=== PATIENT | male | born 1955 | race Hispanic/Latino ===

== ENCOUNTER 2018-12-01 06:58 | Inpatient (IN) | payer OTHER ==
[2018-12-01 08:04] LABS: Basophils % (Auto) 0.5 % (0.0-1.8); Eosinophils % (Auto) 0.6 % (0.0-4.3); Hematocrit 42.3 % (35.5-45.6); Hemoglobin 13.7 gm/dl (11.8-15.2); Lymphocytes # (Auto) 0.4 K/mm3 (1.2-5.4); Lymphocytes % (Auto) 6.8 % (13.4-35.0); Mean Corpuscular HGB Conc 32 % (32-34); Mean Corpuscular Volume 88 fl (84-94); Monocytes # (Auto) 0.4 K/mm3 (0.0-0.8); Monocytes % (Auto) 6.3 % (0.0-7.3); Platelet Count 181 K/mm3 (140-440); Red Blood Count 4.78 M/mm3 (3.65-5.03); Red Cell Distribution Width 18.7 % (13.2-15.2)
[2018-12-01] MEDS ORDERED: NACL 0.9% 500 ML 500 ML IV ONE (08:29)
[2018-12-01 08:31] LABS: Alanine Aminotransferase 42 units/L (7-56); Albumin 3.4 g/dL (3.9-5); BUN/Creatinine Ratio 12; Blood Urea Nitrogen 7 mg/dL (9-20); Calcium 8.5 mg/dL (8.4-10.2); Hemolysis Index 10
[2018-12-01] MEDS ORDERED: MERREM 1,000 MG in NACL 0.9% 100 ML IV ONE (08:31)
--- NOTE | 2018-12-01 08:50 | Emergency Department Report ---
ED General Adult HPI - General Chief complaint: Abdominal Pain Stated complaint: RIGHT FLANK & LEG PAIN Time Seen by Provider: 12/01/18 08:29 Source: patient Mode of arrival: Wheelchair Limitations: No Limitations - History of Present Illness Initial comments: 63-year-old homeless man who was brought in for evaluation for weakness and leg pain. Apparently patient mentions some back pain. On exam he is complaining of abdominal tenderness. He states he is almost since before May which was his last hospitalization for pneumonia. He states he cannot recall how long he was hospitalized for. He states he cannot recall when the last time he was in a [place] [facility] care facility was. He thinks he may have had a fever. Does not report cough chest pain or shortness of breath. -: Gradual, days(s), week(s), month(s) Location: back, abdomen, lower extremity Radiation: non-radiation Quality: aching Consistency: intermittent Improves with: none Worsens with: none Associated Symptoms: denies other symptoms (vague historian may have had a fever) - Related Data Previous Rx's Medication Instructions Recorded Last Taken Type ALBUTEROL Inhaler(NF) [VENTOLIN 2 puff IH Q4H PRN #1 unit 05/26/18 Unknown Rx Inhaler(NF)] Acetaminophen [Acetaminophen TAB] 650 mg PO Q4H PRN #15 tablet 05/26/18 Unknown Rx Aspirin EC 325 mg PO QDAY tablet 05/26/18 Unknown Rx Budesonide/Formoterol Fumarate 1 inhalation IH BID #1 unit 05/26/18 Unknown Rx [Symbicort 160-4.5 Mcg Inhaler] Folic Acid [Folvite] 1 mg PO QDAY #30 tablet 05/26/18 Unknown Rx Nicotine [Habitrol] 21 mg TD QDAY #14 patch 05/26/18 Unknown Rx Thiamine [Vitamin B-1] 100 mg PO QDAY #30 tablet 05/26/18 Unknown Rx Tiotropium [place] [Spiriva 4 gm IH DAILY #1 mist.inhal 05/26/18 Unknown Rx Respimat] levoFLOXacin [Levaquin] 750 mg PO QDAY 5 Days #5 tablet 05/26/18 Unknown Rx methylPREDNISolone [Medrol Dose 1 dose PO DAILY #1 pack 05/26/18 Unknown Rx Ang] Allergies Allergy/AdvReac Type Severity Reaction Status Date / Time No Known Allergies Allergy Verified 05/24/18 23:58 ED Review of Systems ROS: Stated complaint: RIGHT FLANK & LEG PAIN Other details as noted in HPI ED Past Medical Hx - Past Medical History Previous Medical History?: Yes Hx Hypertension: Yes - Surgical History Past Surgical History?: Yes Additional Surgical History: hemorroid, coloscopy - Social History Smoking Status: Current Every Day Smoker Substance Use Type: Alcohol - Medications Home Medications: Home Medications Medication Instructions Recorded Confirmed Last Taken Type ALBUTEROL Inhaler(NF) [VENTOLIN 2 puff IH Q4H PRN #1 unit 05/26/18 Unknown Rx Inhaler(NF)] Acetaminophen [Acetaminophen TAB] 650 mg PO Q4H PRN #15 tablet 05/26/18 Unknown Rx Aspirin EC 325 mg PO QDAY tablet 05/26/18 Unknown Rx Budesonide/Formoterol Fumarate 1 inhalation IH BID #1 unit 05/26/18 Unknown Rx [Symbicort 160-4.5 Mcg Inhaler] Folic Acid [Folvite] 1 mg PO QDAY #30 tablet 05/26/18 Unknown Rx Nicotine [Habitrol] 21 mg TD QDAY #14 patch 05/26/18 Unknown Rx Thiamine [Vitamin B-1] 100 mg PO QDAY #30 tablet 05/26/18 Unknown Rx Tiotropium [place] [Spiriva 4 gm IH DAILY #1 mist.inhal 05/26/18 Unknown Rx Respimat] levoFLOXacin [Levaquin] 750 mg PO QDAY 5 Days #5 tablet 05/26/18 Unknown Rx methylPREDNISolone [Medrol Dose 1 dose PO DAILY #1 pack 05/26/18 Unknown Rx Ang] ED Physical Exam - General Limitations: No Limitations ED Course Vital Signs 12/01/18 07:36 Temperature 96.8 F L Pulse Rate 107 H Respiratory 16 Rate Blood Pressure 111/72 O2 Sat by Pulse 100 Oximetry ED Medical Decision Making - Lab Data Result diagrams: 12/01/18 07:51 12/01/18 07:51 Laboratory Results - last 24 hr 12/01/18 12/01/18 12/01/18 07:44 07:51 07:51 WBC 6.0 RBC 4.78 Hgb 13.7 Hct 42.3 MCV 88 MCH 29 MCHC 32 RDW 18.7 H Plt Count 181 Lymph % (Auto) 6.8 L Hunt % (Auto) 6.3 Eos % (Auto) 0.6 Baso % (Auto) 0.5 Lymph # 0.4 L Hunt # 0.4 Eos # 0.0 Baso # 0.0 Seg Neutrophils % 85.8 H Seg Neutrophils # 5.1 Sodium 125 L Potassium 4.1 Chloride 86.5 L Carbon Dioxide 20 L Anion Gap 23 BUN 7 L Creatinine 0.6 L Estimated GFR > 60 BUN/Creatinine Ratio 12 Glucose 85 POC Glucose 88 Lactic Acid Calcium 8.5 Total Bilirubin 0.40 AST 42 H ALT 42 Alkaline Phosphatase 104 Total Protein 7.2 Albumin 3.4 L Albumin/Globulin Ratio 0.9 Plasma/Serum Alcohol 12/01/18 12/01/18 09:01 09:01 WBC RBC Hgb Hct MCV MCH MCHC RDW Plt Count Lymph % (Auto) Hunt % (Auto) Eos % (Auto) Baso % (Auto) Lymph # Hunt # Eos # Baso # Seg Neutrophils % Seg Neutrophils # Sodium Potassium Chloride Carbon Dioxide Anion Gap BUN Creatinine Estimated GFR BUN/Creatinine Ratio Glucose POC Glucose Lactic Acid 0.70 Calcium Total Bilirubin AST ALT Alkaline Phosphatase Total Protein Albumin Albumin/Globulin Ratio Plasma/Serum Alcohol < 0.01 - EKG Data -: EKG Interpreted by Nm EKG shows normal: sinus rhythm, axis, intervals, QRS complexes, ST-T waves Rate: normal - EKG Data Interpretation: nonspecific ST-T wave noelle - Radiology Data Radiology results: report reviewed Right renal mass, probably adenoma. No acute process. Critical care attestation.: If time is entered above; I have spent that time in minutes in the direct care of this critically ill patient, excluding procedure time. ED Disposition Clinical Impression: Hyponatremia, Acute encephalopathy, Metabolic acidosis, increased anion gap Disposition: OP ADMIT IP TO THIS HOSP Is pt being admited?: Yes Does the pt Need Aspirin: Yes Condition: Stable Referrals: NATAILYA RIVERA MD [Primary Care Provider] - 3-5 Days Time of Disposition: 11:01
--- NOTE | 2018-12-01 09:05 | XRay Report ---
AP CHEST: HISTORY: Possible sepsis AP view of the chest demonstrates a normal mediastinal and cardiac contour with clear lungs. Chronic left rib deformities are again noted. Note significant change since 05/31/18. IMPRESSION: No acute cardiopulmonary process.
[2018-12-01] MEDS ORDERED: DUONEB *Not for PRN Use IH ONE (10:00)
[2018-12-01 10:01] LABS: INR 0.98 (0.87-1.13)
[2018-12-01 10:02] LABS: Partial Thromboplastin Time 28.9 Sec. (24.2-36.6)
[2018-12-01] MEDS ORDERED: NACL 0.9% 1000 ML 1,000 ML IV ONE (10:03)
[2018-12-01 10:09] LABS: Creatine Kinase MB 3.9 ng/mL (0.0-4.0)
--- NOTE | 2018-12-01 10:51 | Cat Scan Report ---
CT ABDOMEN PELVIS WITH CONTRAST: HISTORY: abdominal pain. COMPARISON: none. TECHNIQUE: Helical CT in 1.25mm intervals following IV contrast. Sagittal and coronal reconstructions. FINDINGS: Lung bases: Mild emphysematous changes are suspected at the lung bases. Normal heart size. Small to medium hiatal hernia. Liver: Moderate diffuse fatty infiltration is identified. No enlargement or mass. The hepatic vasculature is patent. Biliary system: Normal. Pancreas: Normal. Spleen: Normal. Kidneys/ureters/bladder: Normal. Adrenal glands: A 3.7 x 2.0 cm low density right adrenal mass is identified. The left adrenal gland is normal. Aorta: Multiple diffuse calcifications. No aneurysm or stenosis. Intestines: No oral contrast was administered. There is no evidence for obstruction or focal inflammation. Appendix: Normal. Pelvic viscera: Normal. Ascites: None. Adenopathy: None. 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 Chronic superior endplate deformity of L2. The bony structures are mildly demineralized with degenerative change. No acute fracture is appreciated. IMPRESSION: No acute inflammatory process is identified. Hiatal hernia. Hepatic steatosis. Right adrenal mass as described. This probably represents an adrenal adenoma. This could be further evaluated with noncontrast CT abdomen or MRI abdomen adrenal protocol if needed. Chronic left rib and L2 fractures.
[2018-12-01] MEDS ORDERED: BABY ASPIRIN PO ONE (11:01)
[2018-12-01] MEDS ORDERED: BABY ASPIRIN ONE (11:20)
[2018-12-01 13:09] LABS: Bilirubin,Urine NEG (Negative); Blood,Urine NEG (Negative); Color,Urine Yellow (Yellow); Mucus,Urine FEW /HPF; Protein,Urine <15 mg/dL mg/dL (Negative); RBC,Urine < 1.0 /HPF (0.0-6.0); Urobilinogen,Urine < 2.0 mg/dL (<2.0); WBC,Urine < 1.0 /HPF (0.0-6.0)
[2018-12-01 13:16] LABS: Amphetamine Screen,Urine PRESUMPTIVE NEGATIVE; Benzodiazepines Screen,Urine PRESUMPTIVE NEGATIVE; Cannabinoid Screen,Urine PRESUMPTIVE NEGATIVE; Cocaine Screen,Urine PRESUMPTIVE NEGATIVE; Methadone Screen,Urine PRESUMPTIVE NEGATIVE; Opiate Screen,Urine PRESUMPTIVE NEGATIVE
[2018-12-01] MEDS ORDERED: SODIUM CHLORIDE FLUSH SYRINGE 10 ML IV PRN (17:26)
[2018-12-01] MEDS ORDERED: TYLENOL PO PRN (17:26)
[2018-12-01] MEDS ORDERED: DILAUDID IV PRN (17:26)
[2018-12-01] MEDS ORDERED: ZOFRAN IV PRN (17:26)
[2018-12-01] MEDS ORDERED: NACL 0.9% 1000 ML 1,000 ML IV SCH (18:00)
[2018-12-01] MEDS ORDERED: HABITROL TD SCH (18:00)
[2018-12-01] MEDS: NACL 0.9% 1000 ML 1,000 ML IV SCH (19:21)
[2018-12-01] MEDS: SODIUM CHLORIDE FLUSH SYRINGE 10 ML IV SCH (21:40)
[2018-12-01] MEDS: PEPCID IV SCH (21:40)
[2018-12-02 05:27] LABS: Basophils % (Auto) 0.7 % (0.0-1.8); Eosinophils % (Auto) 0.7 % (0.0-4.3); Hematocrit 34.1 % (35.5-45.6); Hemoglobin 11.4 gm/dl (11.8-15.2); Lymphocytes # (Auto) 0.4 K/mm3 (1.2-5.4); Lymphocytes % (Auto) 10.4 % (13.4-35.0); Mean Corpuscular HGB Conc 33 % (32-34); Mean Corpuscular Volume 88 fl (84-94); Monocytes # (Auto) 0.5 K/mm3 (0.0-0.8); Monocytes % (Auto) 11.5 % (0.0-7.3); Platelet Count 143 K/mm3 (140-440); Red Blood Count 3.85 M/mm3 (3.65-5.03); Red Cell Distribution Width 18.1 % (13.2-15.2)
[2018-12-02 05:44] LABS: BUN/Creatinine Ratio 10; Blood Urea Nitrogen 6 mg/dL (9-20); Calcium 7.7 mg/dL (8.4-10.2)
[2018-12-02 05:45] LABS: Alanine Aminotransferase 31 units/L (7-56); Albumin 2.6 g/dL (3.9-5); Hemolysis Index 3
--- NOTE | 2018-12-02 06:14 | Event Note ---
Date: 12/01/18 Seee H/p in reports Hyponatremia COPD Homelessness
--- NOTE | 2018-12-02 06:37 | History and Physical Report ---
CHIEF COMPLAINT: 1. Generalized weakness. 2. Homelessness. 3. Low back pain. HISTORY OF PRESENT ILLNESS: The patient is a 63-year-old male with history of COPD and nicotine dependence, comes in for generalized weakness. The patient is homeless. The patient is a poor historian. Apparently smokes about a pack and half a day. The patient had pneumonia in May for which he was hospitalized. He comes in because of generalized weakness and feeling debilitated. Also, some cough and shortness of breath present. No fever or chills. No wheezing. No chest pain. The patient is homeless. PAST MEDICAL HISTORY: As mentioned, COPD and hypertension. CURRENT MEDICATIONS: On the chart. PAST SURGICAL HISTORY: Hemorrhoid surgery. SOCIAL HISTORY: Smokes over a pack to a pack and a half a day. Alcohol occasionally. FAMILY HISTORY: Hypertension. REVIEW OF SYSTEMS: Significant for generalized weakness and difficulty walking. Also, some shortness of breath and cough present, but no wheezing. Shortness of breath on exertion. PHYSICAL EXAMINATION: GENERAL: Elderly male, cooperative during examination. VITAL SIGNS: Blood pressure is 109/62, temperature is 99.4, pulse is 85, respiratory rate is 20, sats are 97%. HEENT: Unremarkable. Pupils equal and reactive. NECK: Supple, no lymphadenopathy, no thyromegaly. LUNGS: Clear to auscultation and percussion. Good air entry. CARDIOVASCULAR: S1, S2 heard. No gallop, no murmur, no rub. Apical impulse in left fifth intercostal space and midclavicular line. ABDOMEN: Soft and benign. No hepatosplenomegaly. No guarding, no rigidity. Hernial orifices are normal. EXTREMITIES: Good pedal pulses. No pedal edema. CENTRAL NERVOUS SYSTEM: Alert and oriented x 4. Nonfocal exam. LABORATORY DATA: Significant for a normal white count, sodium of 125, BUN and creatinine of 7 and 0.6, chloride is 86.5, bicarbonate is 20, AST is 42, albumin is 3.4. Urine specific gravity is 1.033, but no infection. Drug screen is negative. Chest x-ray, no acute cardiopulmonary process. Abdominal and pelvis CT shows no acute inflammatory process. Hiatal hernia. Hepatic steatosis. Right adrenal mass, which may be adrenal adenoma. MRI abdomen renal protocol if needed. ASSESSMENT AND PLAN: 1. Hyponatremia, etiology unclear. The patient is not on any diuretics. IV normal saline for now. Serum osmolality and urine osmolality were ordered. 2. Chronic obstructive pulmonary disease. Continue Symbicort and DuoNeb and Spiriva. 3. Nicotine dependence. Nicotine patch ordered. 4. Smoking cessation, counseled. 10 minutes. 5. Homelessness. Case management and social studies teacher are involved. 6. Deep venous thrombosis prophylaxis, Lovenox subcutaneously daily and gastrointestinal prophylaxis. JOB# [id number] HERMELINDO/ROMERO CASTILLO
[2018-12-02] MEDS ORDERED: PULMICORT IH SCH (08:00)
--- NOTE | 2018-12-02 09:22 | Progress Note ---
Assessment and Plan Assessment and plan: Patient is a 63 yo man who is Homeless with a history of COPD, tobacco dependency, alcohol abuse, AOCD, hypotension, right Adrenal lesion, hepatic steatosis and hiatal hernia who presented to [facility] ED with abdominal pains. He was sleeping outside of a gas station. He c/o abdominal and back pains. He was p icked up by EMS. Patient arrived wet and smelling of urine * CT abd/pelvis with IV contrast IMPRESSION: No acute inflammatory process is identified. Hiatal hernia. Hepatic steatosis. Right adrenal mass as described. This probably represents an adrenal adenoma. This could be further evaluated with noncontrast CT abdomen or MRI abdomen adrenal protocol if needed. Chronic left rib and L2 fractures. * pCXR IMPRESSION: No acute cardiopulmonary process. Severe hyponatremia, initially sodium level 125, dehydration: treat with IV fluids, consulted Nephrology Hypokalemia: replete and monitor closely Severe protein malnutrition, albumin 2.6: consult Commercial Marketing Specialist Chronic Right Adrenal Mass: consult GI Alcohol fatty liver, alcohol level, transaminases and bilirubin normal: continue to encourage alcohol abstinence Acidosis: treat the dehydration Mild AE COPD: treat with nebs, o2 as needed Tobacco dependency: certified credit counselor on stopping Homeless: Case management consulted DVT ppx on sq lovenox History Interval history: Patient was seen and examined. Follow-up on current diagnosis of Hyponatremia, COPD and Homelessness. No overnight events reported to me. Patient denies any chest pain, shortness breath, nausea/vomiting or severe headaches. Imaging, nursing note, chart, labs and old chart reviewed. Discussed with patient. Hospitalist Physical - Physical exam Narrative exam: Gen: thin frail, unkempt, NAD, Awake, Alert, Orientated HEENT: NCAT, EOMI, PERRL, OP Clear Neck: supple, no adenopathy, no thyromegaly, no JVD CVS/Heart: RRR, normal S1S2, pulses present bilaterally Chest/Lungs: CTA B, Symmetrical chest expansion, good air entry bilaterally GI/Abdomen: soft, NTND, good bowel sounds, no guarding or rebound /Bladder: no suprapubic tenderness, no CVA or paraspinal tenderness Extermity/Skin: no c/c/e, no obvious rash MSK: FROM x 4 Neuro: CN 2-12 grossly intact, no new focal deficits Psych: calm - Constitutional Vitals: Temp Pulse Resp BP Pulse Ox 98.6 F 87 18 104/63 98 12/02/18 05:57 12/02/18 05:57 12/02/18 05:57 12/02/18 05:57 12/02/18 05:57 Results - Labs CBC & Chem 7: 12/02/18 04:45 12/02/18 04:45 Labs: Laboratory Last Values WBC 4.2 K/mm3 (4.5-11.0) L 12/02/18 04:45 RBC 3.85 M/mm3 (3.65-5.03) 12/02/18 04:45 Hgb 11.4 gm/dl (11.8-15.2) L 12/02/18 04:45 Hct 34.1 % (35.5-45.6) L D 12/02/18 04:45 MCV 88 fl (84-94) 12/02/18 04:45 MCH 30 pg (28-32) 12/02/18 04:45 MCHC 33 % (32-34) 12/02/18 04:45 RDW 18.1 % (13.2-15.2) H 12/02/18 04:45 Plt Count 143 K/mm3 (140-440) 12/02/18 04:45 Lymph % (Auto) 10.4 % (13.4-35.0) L 12/02/18 04:45 [place] % (Auto) 11.5 % (0.0-7.3) H 12/02/18 04:45 Eos % (Auto) 0.7 % (0.0-4.3) 12/02/18 04:45 Baso % (Auto) 0.7 % (0.0-1.8) 12/02/18 04:45 Lymph # 0.4 K/mm3 (1.2-5.4) L 12/02/18 04:45 [place] # 0.5 K/mm3 (0.0-0.8) 12/02/18 04:45 Eos # 0.0 K/mm3 (0.0-0.4) 12/02/18 04:45 Baso # 0.0 K/mm3 (0.0-0.1) 12/02/18 04:45 Seg Neutrophils % 76.7 % (40.0-70.0) H 12/02/18 04:45 Seg Neutrophils # 3.2 K/mm3 (1.8-7.7) 12/02/18 04:45 PT 13.6 Sec. (12.2-14.9) 12/01/18 09:01 INR 0.98 (0.87-1.13) 12/01/18 09:01 APTT 28.9 Sec. (24.2-36.6) 12/01/18 09:01 VBG pH 7.404 (7.320-7.420) 12/01/18 09:01 Sodium 127 mmol/L (137-145) L 12/02/18 04:45 Potassium 3.0 mmol/L (3.6-5.0) L D 12/02/18 04:45 Chloride 94.1 mmol/L (98-107) L 12/02/18 04:45 Carbon Dioxide 20 mmol/L (22-30) L 12/02/18 04:45 16 mmol/L 12/02/18 04:45 BUN 6 mg/dL (9-20) L 12/02/18 04:45 0.6 mg/dL (0.8-1.5) L 12/02/18 04:45 Estimated GFR > 60 ml/min 12/02/18 04:45 10 % 12/02/18 04:45 Glucose 123 mg/dL (75-100) H 12/02/18 04:45 POC Glucose 88 (70-105) 12/01/18 07:44 4.6 % (4-6) 12/01/18 17:36 Lactic Acid 0.80 mmol/L (0.7-2.0) 12/01/18 13:04 Calcium 7.7 mg/dL (8.4-10.2) L 12/02/18 04:45 Magnesium 1.90 mg/dL (1.7-2.3) 12/01/18 07:51 0.30 mg/dL (0.1-1.2) 12/02/18 04:45 AST 28 units/L (5-40) 12/02/18 04:45 ALT 31 units/L (7-56) 12/02/18 04:45 81 units/L (35-129) 12/02/18 04:45 46.0 umol/L (25-60) 12/01/18 09:01 125 units/L (55-170) 12/01/18 07:51 CK-MB (CK-2) 3.9 ng/mL (0.0-4.0) 12/01/18 07:51 CK-MB (CK-2) Rel Index 3.1 (0-4) 12/01/18 07:51 < 0.010 ng/mL (0.00-0.029) 12/01/18 07:51 NT-Pro-B Natriuret Pep 247.0 pg/mL (0-900) 12/01/18 07:51 5.4 g/dL (6.3-8.2) L D 12/02/18 04:45 2.6 g/dL (3.9-5) L 12/02/18 04:45 0.9 % 12/02/18 04:45 25 units/L (13-60) 12/01/18 07:51 Yellow (Yellow) 12/01/18 12:22 Clear (Clear) 12/01/18 12:22 6.0 (5.0-7.0) 12/01/18 12:22 Ur Specific [place] 1.033 (1.003-1.030) H 12/01/18 12:22 <15 mg/dl mg/dL (Negative) 12/01/18 12:22 Neg mg/dL (Negative) 12/01/18 12:22 20 mg/dL (Negative) 12/01/18 12:22 Neg (Negative) 12/01/18 12:22 Neg (Negative) 12/01/18 12:22 Neg (Negative) 12/01/18 12:22 < 2.0 mg/dL (<2.0) 12/01/18 12:22 Ur Leukocyte Esterase Neg (Negative) 12/01/18 12:22 < 1.0 /HPF (0.0-6.0) 12/01/18 12:22 < 1.0 /HPF (0.0-6.0) 12/01/18 12:22 Few /HPF 12/01/18 12:22 Presumptive negative 12/01/18 12:22 Presumptive negative 12/01/18 12:22 Ur Barbiturates Screen Presumptive negative 12/01/18 12:22 Ur Phencyclidine Scrn Presumptive negative 12/01/18 12:22 Ur Amphetamines Screen Presumptive negative 12/01/18 12:22 U Benzodiazepines Scrn Presumptive negative 12/01/18 12:22 Presumptive negative 12/01/18 12:22 U Marijuana (THC) Screen Presumptive negative 12/01/18 12:22 Disclamer 12/01/18 12:22 Plasma/Serum Alcohol < 0.01 % (0-0.07) 12/01/18 09:01 Active Medications - Current Medications Current Medications: Generic Name Dose Route Start Last Admin Trade Name Freq PRN Reason Stop Dose Admin Acetaminophen 650 mg 12/01/18 17:26 Tylenol PO Q4H PRN Pain MILD(1-3)/Fever >100.5/MCKEON Arformoterol Tartrate 15 mcg 12/02/18 08:00 Brovana Nebu IH Q12HRT [facility] Aspirin 325 mg 12/02/18 10:00 Ecotrin PO QDAY DAVIS Budesonide 0.5 mg 12/02/18 08:00 Pulmicort IH Q12HRT [facility] Famotidine 20 mg 12/01/18 22:00 12/01/18 21:40 Pepcid IV 20 mg BID DAVIS Administration Folic Acid 1 mg 12/02/18 10:00 Folvite PO QDAY DAVIS Hydromorphone HCl 0.25 mg 12/01/18 17:26 Dilaudid IV Q3H PRN Pain, Moderate (4-6) Sodium Chloride 1,000 mls @ 100 mls/hr 12/01/18 18:00 12/01/18 19:21 Nacl 0.9% 1000 Ml IV 100 mls/hr DIRECT DAVIS Administration Ibuprofen 600 mg 12/01/18 17:26 Ibuprofen PO Q6H PRN Pain, Mild (1-3) Nicotine 21 mg 12/02/18 10:00 Habitrol TD QDAY DAVIS Ondansetron HCl 4 mg 12/01/18 17:26 Zofran IV Q8H PRN Nausea And Vomiting Pneumococcal Polyvalent Vaccine 0.5 ml 12/02/18 12:00 Pneumovax 23 IM 12/02/18 12:01 .ONCE ONE Sodium Chloride 10 ml 12/01/18 22:00 12/01/18 21:40 Sodium Chloride Flush Syringe 10 Ml IV 10 ml BID DAVIS Administration Sodium Chloride 10 ml 12/01/18 17:26 Sodium Chloride Flush Syringe 10 Ml IV PRN PRN LINE FLUSH Thiamine HCl 100 mg 12/02/18 10:00 Vitamin B-1 PO QDAY DAVIS Tiotropium [place] 1 puff 12/02/18 10:00 Spiriva IH Q24HR DAVIS
[2018-12-02] MEDS: NACL 0.9% 1000 ML 1,000 ML IV SCH ×2 (09:53→22:06)
[2018-12-02] MEDS: HABITROL TD SCH (09:55)
[2018-12-02] MEDS: VITAMIN B-1 PO SCH (09:55)
[2018-12-02] MEDS: ECOTRIN PO SCH (09:55)
[2018-12-02] MEDS: FOLVITE PO SCH (09:55)
[2018-12-02] MEDS: PEPCID IV SCH ×2 (09:56→22:06)
[2018-12-02] MEDS: SODIUM CHLORIDE FLUSH SYRINGE 10 ML IV SCH ×2 (09:56→22:06)
[2018-12-02] MEDS ORDERED: BUDESONIDE IH SCH (10:00)
[2018-12-02] MEDS ORDERED: FORMOTEROL FUMARATE IH SCH (10:00)
[2018-12-02] MEDS ORDERED: NON-FORMULARY (Tiotropium Bromide [Spiriva Respimat] 4 GM) IH SCH (10:00)
[2018-12-02] MEDS ORDERED: [UNRECOGNIZED DRUG - OTHER] IH SCH (10:00)
[2018-12-02] MEDS ORDERED: K-DUR PO ONE ×2 (10:00→22:52)
[2018-12-02] MEDS: BROVANA NEBU IH SCH ×2 (10:03→21:19)
[2018-12-02] MEDS: PULMICORT IH SCH ×2 (10:03→21:19)
[2018-12-02] MEDS: SPIRIVA IH SCH (10:03)
[2018-12-02] MEDS ORDERED: PNEUMOVAX 23 IM ONE (12:00)
--- NOTE | 2018-12-02 15:07 | Consultation ---
History of Present Illness - Reason for Consult Consult date: 12/02/18 hyponatremia, hypokalemia - History of Present Illness The patient is a 63 YO male who is homeless was brought into [facility] ED for evaluation of weakness and leg pain. Patient is very poor historian. "I was sick". Patient was not able to described any symptom. He was admitted last year for hypotension and hyponatremia. He denies any cp, sob, fever, chills, dizziness or syncope. Sodium was 125 on admission. Nephrology was consulted for further evaluation. Past History Past Medical History: other (Adrenal mass) Medications and Allergies Allergies Allergy/AdvReac Type Severity Reaction Status Date / Time No Known Allergies Allergy Verified 05/24/18 23:58 Home Medications Medication Instructions Recorded Confirmed Last Taken Type ALBUTEROL Inhaler(NF) [VENTOLIN 2 puff IH Q4H PRN #1 unit 05/26/18 Unknown Rx Inhaler(NF)] Acetaminophen [Acetaminophen TAB] 650 mg PO Q4H PRN #15 tablet 05/26/18 Unknown Rx Aspirin EC 325 mg PO QDAY tablet 05/26/18 Unknown Rx Budesonide/Formoterol Fumarate 1 inhalation IH BID #1 unit 05/26/18 Unknown Rx [Symbicort 160-4.5 Mcg Inhaler] Folic Acid [Folvite] 1 mg PO QDAY #30 tablet 05/26/18 Unknown Rx Nicotine [Habitrol] 21 mg TD QDAY #14 patch 05/26/18 Unknown Rx Thiamine [Vitamin B-1] 100 mg PO QDAY #30 tablet 05/26/18 Unknown Rx Tiotropium [place] [Spiriva 4 gm IH DAILY #1 mist.inhal 05/26/18 Unknown Rx Respimat] levoFLOXacin [Levaquin] 750 mg PO QDAY 5 Days #5 tablet 05/26/18 Unknown Rx methylPREDNISolone [Medrol Dose 1 dose PO DAILY #1 pack 05/26/18 Unknown Rx Ang] Active Meds: Active Medications Acetaminophen (Tylenol) 650 mg PO Q4H PRN PRN Reason: Pain MILD(1-3)/Fever >100.5/MCKEON Arformoterol Tartrate (Brovana Nebu) 15 mcg IH Q12HRT [facility] Last Admin: 12/02/18 10:03 Dose: 15 mcg Documented by: Aspirin (Ecotrin) 325 mg PO QDAY [facility] Last Admin: 12/02/18 09:55 Dose: 325 mg Documented by: Budesonide (Pulmicort) 0.5 mg IH Q12HRT [facility] Last Admin: 12/02/18 10:03 Dose: 0.5 mg Documented by: Famotidine (Pepcid) 20 mg IV BID [facility] Last Admin: 12/02/18 09:56 Dose: 20 mg Documented by: Folic Acid (Folvite) 1 mg PO QDAY [facility] Last Admin: 12/02/18 09:55 Dose: 1 mg Documented by: Hydromorphone HCl (Dilaudid) 0.25 mg IV Q3H PRN PRN Reason: Pain, Moderate (4-6) Sodium Chloride (Nacl 0.9% 1000 Ml) 1,000 mls @ 100 mls/hr IV DIRECT [facility] Last Admin: 12/02/18 09:53 Dose: 100 mls/hr Documented by: Ibuprofen (Ibuprofen) 600 mg PO Q6H PRN PRN Reason: Pain, Mild (1-3) Nicotine (Habitrol) 21 mg TD QDAY [facility] Last Admin: 12/02/18 09:55 Dose: 21 mg Documented by: Ondansetron HCl (Zofran) 4 mg IV Q8H PRN PRN Reason: Nausea And Vomiting Sodium Chloride (Sodium Chloride Flush Syringe 10 Ml) 10 ml IV BID [facility] Last Admin: 12/02/18 09:56 Dose: 10 ml Documented by: Sodium Chloride (Sodium Chloride Flush Syringe 10 Ml) 10 ml IV PRN PRN PRN Reason: LINE FLUSH Thiamine HCl (Vitamin B-1) 100 mg PO QDAY [facility] Last Admin: 12/02/18 09:55 Dose: 100 mg Documented by: Tiotropium [place] (Spiriva) 1 puff IH Q24HR [facility] Last Admin: 12/02/18 10:03 Dose: 1 puff Documented by: Review of Systems ROS unobtainable: due to mental status Exam - Vital Signs Vital signs: Vital Signs Temp Pulse Resp BP Pulse Ox 96.8 F L 107 H 16 111/72 100 12/01/18 07:36 12/01/18 07:36 12/01/18 07:36 12/01/18 07:36 12/01/18 07:36 - General Appearance General appearance: well-developed, appears stated age, other (appears emaciated, no distress) EENT: ATNC, PERRL, mucous membranes moist, hearing intact, vision intact Neck: Present: neck supple, trachea midline Respiratory: Clear to Ascultation Heart: regular, S1S2, no murmurs Gastrointestinal: Present: normoactive bowel sounds. Absent: tenderness, distended Integumentary: no rash, warm and dry Neurologic: no focal deficit, no asterixis, disoriented Musculoskeletal: Present: other (no edema) Results - Lab Results 12/02/18 04:45 12/02/18 04:45 Most recent lab results Calcium 7.7 mg/dL (8.4-10.2) L 12/02/18 04:45 Magnesium 1.90 mg/dL (1.7-2.3) 12/01/18 07:51 Assessment and Plan 1. Hyponatremia: Hyponatremia likely secondary to volume depletion. Sodium level is improving with Iv fluids. Add Salt tablets. Monitor Sodium level. 2. FEN: Volume depletion, continue IV fluids. Replete K. 3. Severe protein malnutrition. 4. Chronic Right Adrenal Mass. 5. COPD. 6. Tobacco dependency.
--- NOTE | 2018-12-02 16:05 | Event Note ---
Date: 12/02/18 Patient admitted with abdominal pain. Not in acute COPD exacerbation. Patient has been counseled on smoking cessation. He is currently on a regimen that he likely cannot afford nor obtain. Suggest changing to scheduled albuterol and ipratroprium nebs at q6 hour intervals (4x daily). Could ask CM about any free drug programs but if he keeps smoking (unsure how he affords cigarettes) then his COPD will not improve. will sign off, call if questions.
[2018-12-02] MEDS: IBUPROFEN PO PRN (16:53)
[2018-12-02 18:56] LABS: BUN/Creatinine Ratio 8; Blood Urea Nitrogen 5 mg/dL (9-20); Calcium 7.6 mg/dL (8.4-10.2); Hemolysis Index 3
[2018-12-03 06:41] LABS: Hematocrit 31.6 % (35.5-45.6); Hemoglobin 10.6 gm/dl (11.8-15.2); Mean Corpuscular HGB Conc 34 % (32-34); Mean Corpuscular Volume 88 fl (84-94); Platelet Count 151 K/mm3 (140-440); Red Blood Count 3.59 M/mm3 (3.65-5.03)
[2018-12-03] MEDS: BROVANA NEBU IH SCH ×2 (07:26→20:20)
[2018-12-03] MEDS: PULMICORT IH SCH ×2 (07:26→20:20)
[2018-12-03 07:54] LABS: BUN/Creatinine Ratio 8; Blood Urea Nitrogen 4 mg/dL (9-20); Calcium 7.4 mg/dL (8.4-10.2); Hemolysis Index 0; Uric Acid 2.9 mg/dL (3.5-7.6)
[2018-12-03] MEDS: SPIRIVA IH SCH (09:05)
[2018-12-03] MEDS: FOLVITE PO SCH (10:02)
[2018-12-03] MEDS: MAG-OX PO SCH ×2 (10:02→21:46)
[2018-12-03] MEDS: ECOTRIN PO SCH (10:02)
[2018-12-03] MEDS: PEPCID IV SCH ×2 (10:02→21:46)
[2018-12-03] MEDS: VITAMIN B-1 PO SCH (10:02)
[2018-12-03] MEDS: PHOS-NAK PO SCH ×3 (10:02→17:53)
[2018-12-03] MEDS: SODIUM CHLORIDE FLUSH SYRINGE 10 ML IV SCH ×2 (10:03→22:14)
[2018-12-03] MEDS: HABITROL TD SCH (10:03)
[2018-12-03] MEDS ORDERED: MAGNESIUM SULFATE 2GM/50ML 2 GM/50 ML BAG IV ONE (11:00)
[2018-12-03] MEDS: NACL 0.9% 1000 ML 1,000 ML IV SCH (11:51)
--- NOTE | 2018-12-03 12:51 | Progress Note ---
Assessment and Plan Assessment and plan: Patient is a 63 yo man who is Homeless with a history of COPD, tobacco dependency, alcohol abuse, AOCD, hypotension, right Adrenal lesion, hepatic steatosis and hiatal hernia who presented to [facility] ED with abdominal pains. He was sleeping outside of a gas station. He c/o abdominal and back pains. He was p icked up by EMS. Patient arrived wet and smelling of urine * CT abd/pelvis with IV contrast IMPRESSION: No acute inflammatory process is identified. Hiatal hernia. Hepatic steatosis. Right adrenal mass as described. This probably represents an adrenal adenoma. This could be further evaluated with noncontrast CT abdomen or MRI abdomen adrenal protocol if needed. Chronic left rib and L2 fractures. * pCXR IMPRESSION: No acute cardiopulmonary process. Severe hyponatremia, initially sodium level 125, dehydration: improved, consulted Nephrology input noted Hypokalemia: replete and monitor closely Severe protein malnutrition, albumin 2.6: consulted Disability Advocate Chronic Right Adrenal Mass: consult GI, await evaluation Alcohol fatty liver, alcohol level, transaminases and bilirubin normal: continue to encourage alcohol abstinence Acidosis: treat the dehydration COPD stable: treat with nebs, o2 as needed Tobacco dependency: application counselor on stopping Homeless: Case management consulted DVT ppx on sq lovenox History Interval history: Patient was seen and examined. Follow-up on current diagnosis of Hyponatremia, COPD and Homelessness. No overnight events reported to me. Patient denies any chest pain, shortness breath, nausea/vomiting or severe headaches. Imaging, nursing note, chart, labs and old chart reviewed. Discussed with patient. Hospitalist Physical - Physical exam Narrative exam: Gen: thin frail, unkempt, NAD, Awake, Alert, Orientated HEENT: NCAT, EOMI, PERRL, OP Clear Neck: supple, no adenopathy, no thyromegaly, no JVD CVS/Heart: RRR, normal S1S2, pulses present bilaterally Chest/Lungs: CTA B, Symmetrical chest expansion, good air entry bilaterally GI/Abdomen: soft, NTND, good bowel sounds, no guarding or rebound /Bladder: no suprapubic tenderness, no CVA or paraspinal tenderness Extermity/Skin: no c/c/e, no obvious rash MSK: FROM x 4 Neuro: CN 2-12 grossly intact, no new focal deficits Psych: calm - Constitutional Vitals: Temp Pulse Resp BP Pulse Ox 97.5 F L 82 18 131/75 97 12/03/18 05:50 12/03/18 07:34 12/03/18 07:34 12/03/18 05:50 12/03/18 05:50 Results - Labs CBC & Chem 7: 12/03/18 05:57 12/03/18 05:57 Labs: Laboratory Last Values WBC 4.5 K/mm3 (4.5-11.0) 12/03/18 05:57 RBC 3.59 M/mm3 (3.65-5.03) L 12/03/18 05:57 Hgb 10.6 gm/dl (11.8-15.2) L 12/03/18 05:57 Hct 31.6 % (35.5-45.6) L 12/03/18 05:57 MCV 88 fl (84-94) 12/03/18 05:57 MCH 30 pg (28-32) 12/03/18 05:57 MCHC 34 % (32-34) 12/03/18 05:57 RDW 18.0 % (13.2-15.2) H 12/03/18 05:57 Plt Count 151 K/mm3 (140-440) 12/03/18 05:57 Lymph % (Auto) 10.4 % (13.4-35.0) L 12/02/18 04:45 [place] % (Auto) 11.5 % (0.0-7.3) H 12/02/18 04:45 Eos % (Auto) 0.7 % (0.0-4.3) 12/02/18 04:45 Baso % (Auto) 0.7 % (0.0-1.8) 12/02/18 04:45 Lymph # 0.4 K/mm3 (1.2-5.4) L 12/02/18 04:45 [place] # 0.5 K/mm3 (0.0-0.8) 12/02/18 04:45 Eos # 0.0 K/mm3 (0.0-0.4) 12/02/18 04:45 Baso # 0.0 K/mm3 (0.0-0.1) 12/02/18 04:45 Seg Neutrophils % 76.7 % (40.0-70.0) H 12/02/18 04:45 Seg Neutrophils # 3.2 K/mm3 (1.8-7.7) 12/02/18 04:45 PT 13.6 Sec. (12.2-14.9) 12/01/18 09:01 INR 0.98 (0.87-1.13) 12/01/18 09:01 APTT 28.9 Sec. (24.2-36.6) 12/01/18 09:01 VBG pH 7.404 (7.320-7.420) 12/01/18 09:01 Sodium 131 mmol/L (137-145) L 12/03/18 05:57 Potassium 3.7 mmol/L (3.6-5.0) 12/03/18 05:57 Chloride 96.9 mmol/L (98-107) L 12/03/18 05:57 Carbon Dioxide 22 mmol/L (22-30) 12/03/18 05:57 16 mmol/L 12/03/18 05:57 BUN 4 mg/dL (9-20) L 12/03/18 05:57 0.5 mg/dL (0.8-1.5) L 12/03/18 05:57 Estimated GFR > 60 ml/min 12/03/18 05:57 8 % 12/03/18 05:57 Glucose 94 mg/dL (75-100) 12/03/18 05:57 POC Glucose 88 (70-105) 12/01/18 07:44 4.6 % (4-6) 12/01/18 17:36 260 Mosm/kg 12/02/18 06:30 Lactic Acid 0.80 mmol/L (0.7-2.0) 12/01/18 13:04 2.9 mg/dL (3.5-7.6) L 12/03/18 05:57 Calcium 7.4 mg/dL (8.4-10.2) L 12/03/18 05:57 Phosphorus 1.90 mg/dL (2.5-4.5) L 12/03/18 05:57 Magnesium 1.60 mg/dL (1.7-2.3) L 12/03/18 05:57 0.30 mg/dL (0.1-1.2) 12/02/18 04:45 AST 28 units/L (5-40) 12/02/18 04:45 ALT 31 units/L (7-56) 12/02/18 04:45 81 units/L (35-129) 12/02/18 04:45 46.0 umol/L (25-60) 12/01/18 09:01 125 units/L (55-170) 12/01/18 07:51 CK-MB (CK-2) 3.9 ng/mL (0.0-4.0) 12/01/18 07:51 CK-MB (CK-2) Rel Index 3.1 (0-4) 12/01/18 07:51 < 0.010 ng/mL (0.00-0.029) 12/01/18 07:51 NT-Pro-B Natriuret Pep 247.0 pg/mL (0-900) 12/01/18 07:51 5.4 g/dL (6.3-8.2) L D 12/02/18 04:45 2.6 g/dL (3.9-5) L 12/02/18 04:45 0.9 % 12/02/18 04:45 25 units/L (13-60) 12/01/18 07:51 Yellow (Yellow) 12/01/18 12:22 Clear (Clear) 12/01/18 12:22 6.0 (5.0-7.0) 12/01/18 12:22 Ur Specific [place] 1.033 (1.003-1.030) H 12/01/18 12:22 <15 mg/dl mg/dL (Negative) 12/01/18 12:22 Neg mg/dL (Negative) 12/01/18 12:22 20 mg/dL (Negative) 12/01/18 12:22 Neg (Negative) 12/01/18 12:22 Neg (Negative) 12/01/18 12:22 Neg (Negative) 12/01/18 12:22 < 2.0 mg/dL (<2.0) 12/01/18 12:22 Ur Leukocyte Esterase Neg (Negative) 12/01/18 12:22 < 1.0 /HPF (0.0-6.0) 12/01/18 12:22 < 1.0 /HPF (0.0-6.0) 12/01/18 12:22 Few /HPF 12/01/18 12:22 Presumptive negative 12/01/18 12:22 Presumptive negative 12/01/18 12:22 Ur Barbiturates Screen Presumptive negative 12/01/18 12:22 Ur Phencyclidine Scrn Presumptive negative 12/01/18 12:22 Ur Amphetamines Screen Presumptive negative 12/01/18 12:22 U Benzodiazepines Scrn Presumptive negative 12/01/18 12:22 Presumptive negative 12/01/18 12:22 U Marijuana (THC) Screen Presumptive negative 12/01/18 12:22 Disclamer 12/01/18 12:22 Plasma/Serum Alcohol < 0.01 % (0-0.07) 12/01/18 09:01 Active Medications - Current Medications Current Medications: Generic Name Dose Route Start Last Admin Trade Name Freq PRN Reason Stop Dose Admin Acetaminophen 650 mg 12/01/18 17:26 Tylenol PO Q4H PRN Pain MILD(1-3)/Fever >100.5/MCKEON Arformoterol Tartrate 15 mcg 12/02/18 08:00 12/03/18 07:26 Brovana Nebu IH 15 mcg Q12HRT [facility]IS Administration Aspirin 325 mg 12/02/18 10:00 12/03/18 10:02 Ecotrin PO 325 mg QDAY DAVIS Administration Budesonide 0.5 mg 12/02/18 08:00 12/03/18 07:26 Pulmicort IH 0.5 mg Q12HRT DAVIS Administration Famotidine 20 mg 12/01/18 22:00 12/03/18 10:02 Pepcid IV 20 mg BID DAVIS Administration Folic Acid 1 mg 12/02/18 10:00 12/03/18 10:02 Folvite PO 1 mg QDAY DAVIS Administration Hydromorphone HCl 0.25 mg 12/01/18 17:26 Dilaudid IV Q3H PRN Pain, Moderate (4-6) Sodium Chloride 1,000 mls @ 100 mls/hr 12/01/18 18:00 12/03/18 11:51 Nacl 0.9% 1000 Ml IV 100 mls/hr DIRECT DAVIS Administration Magnesium Sulfate 2 gm in 50 mls @ 25 mls/hr 12/03/18 11:00 12/03/18 11:50 Magnesium Sulfate 2gm/50ml IV 12/03/18 12:59 25 mls/hr ONCE ONE Administration Ibuprofen 600 mg 12/01/18 17:26 12/02/18 16:53 Ibuprofen PO 600 mg Q6H PRN Administration Pain, Mild (1-3) Magnesium Oxide 400 mg 12/03/18 10:00 12/03/18 10:02 Mag-Ox PO 400 mg BID DAVIS Administration Nicotine 21 mg 12/02/18 10:00 12/03/18 10:03 Habitrol TD 21 mg QDAY DAVIS Administration Ondansetron HCl 4 mg 12/01/18 17:26 Zofran IV Q8H PRN Nausea And Vomiting Potassium Phos/Sodium Phos 2 each 12/03/18 10:00 12/03/18 10:02 Phos-Nak PO 12/03/18 18:01 2 each Q4HR DAVIS Administration Sodium Chloride 10 ml 12/01/18 22:00 12/03/18 10:03 Sodium Chloride Flush Syringe 10 Ml IV 10 ml BID DAVIS Administration Sodium Chloride 10 ml 12/01/18 17:26 Sodium Chloride Flush Syringe 10 Ml IV PRN PRN LINE FLUSH Thiamine HCl 100 mg 12/02/18 10:00 12/03/18 10:02 Vitamin B-1 PO 100 mg QDAY DAVIS Administration Tiotropium [place] 1 puff 12/02/18 10:00 12/03/18 09:05 Spiriva IH Not Given Q24HR [facility] Nutrition/Malnutrition Assess - Dietary Evaluation Nutrition/Malnutrition Findings: Nutrition Notes Start: 12/02/18 17:05 Freq: Status: Active Protocol: Document 12/02/18 17:05 (Rec: 12/02/18 17:12 [facility] [id number]) Nutrition Notes Need for Assessment generated from: MD Order Initial or Follow up Assessment Current Diagnosis COPD,Hypertension Other Pertinent Diagnosis Alcoholic fatty liver, homelessness Current Diet Regular Labs/Tests Reviewed Pertinent Medications Reviewed Height 5 ft 5 in Weight 63.503 kg Usual Body Weight 63.64 kg [place] Body Weight (kg) 61.81 BMI 23.3 Subjective/Other Information Consulted for malnutrition. Pt stated that [employer] his appetite was "so so" and that he ate 1 meal daily for months . Stated his appetite is "so so" now and that he eats 50% of his meals. Declined regular ONS. Admitted to nausea and diarrhea. Stated UBW was 140 lbs at least a year ago. No temporal or orbital wasting . Percent of energy/protein needs met: 66%/85% Burn Absent Trauma Absent #1 Nutrition Diagnosis Inadequate oral intake Etiology decreased appetite As Evidenced by Signs and Symptoms pt statement that he eats 50% of his meals Is patient on ventilator? No Is Patient Ambulatory and/or Out of Bed Yes REE-([facility]-ambulatory/OOB) [ 1770.483 [id number]] Calculation Used for Recommendations [facility] Additional Notes Protein Needs:51-64g (0.8-1g/ kg) Fluid Needs: 1 ml/kcal Nutrition Intervention Change Diet Order: Continue current Add Supplement/Snack (indicate name/kcal Ensure Clear 1 daily /protein ) Provides kCal: 240 Provides Protein (gm) 8 Goal #1 Meet at least 75% of calorie and protein needs via PO and ONS intakes Anticipated Discharge Needs: Regular diet Follow-Up By: 12/06/18 Additional Comments Follow for PO and ONS intakes
--- NOTE | 2018-12-03 13:04 | Progress Note ---
Assessment and Plan 1. 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 Sodium level is improving. Continue Salt tablets. Monitor Sodium level. 2. FEN: Volume depletion, continue IV fluids. Replete K, Mg and Phos. 3. Severe protein malnutrition. 4. Chronic Right Adrenal Mass. 5. COPD. 6. Tobacco dependency. Subjective Date of service: 12/03/18 Interval history: Patient was seen and examined at the bedside. Doing ok. Objective - Vital Signs Vital signs: Vital Signs - 12hr 12/03/18 12/03/18 12/03/18 02:05 05:50 07:26 Temperature 97.5 F L Pulse Rate 86 Pulse Rate [ 78 Anterior Bilateral Throughout] Respiratory 18 18 Rate Respiratory 18 Rate [Anterior Bilateral Throughout] Blood Pressure 131/75 O2 Sat by Pulse 97 Oximetry 12/03/18 07:34 Temperature Pulse Rate Pulse Rate [ 82 Anterior Bilateral Throughout] Respiratory Rate Respiratory 18 Rate [Anterior Bilateral Throughout] Blood Pressure O2 Sat by Pulse Oximetry - General Appearance General appearance: well-developed, appears stated age, other (no distress) EENT: ATNC, PERRL, mucous membranes moist, hearing intact, vision intact Neck: supple Respiratory: Present: Clear to Ascultation Cardiology: regular, S1S2, no murmurs Gastrointestinal: normoactive bowel sounds, no tenderness, no distended Integumentary: no rash, warm and dry Neurologic: no focal deficit, no asterixis Musculoskeletal: other (no edema) - Lab 12/03/18 05:57 12/03/18 05:57 Most recent lab results Calcium 7.4 mg/dL (8.4-10.2) L 12/03/18 05:57 Phosphorus 1.90 mg/dL (2.5-4.5) L 12/03/18 05:57 Magnesium 1.60 mg/dL (1.7-2.3) L 12/03/18 05:57 Medications & Allergies - Medications Allergies/Adverse Reactions: Allergies No Known Allergies Allergy (Verified 05/24/18 23:58) Home Medications: Home Medications Medication Instructions Recorded Confirmed Last Taken Type ALBUTEROL Inhaler(NF) [VENTOLIN 2 puff IH Q4H PRN #1 unit 05/26/18 Unknown Rx Inhaler(NF)] Acetaminophen [Acetaminophen TAB] 650 mg PO Q4H PRN #15 tablet 05/26/18 Unknown Rx Aspirin EC 325 mg PO QDAY tablet 05/26/18 Unknown Rx Budesonide/Formoterol Fumarate 1 inhalation IH BID #1 unit 05/26/18 Unknown Rx [Symbicort 160-4.5 Mcg Inhaler] Folic Acid [Folvite] 1 mg PO QDAY #30 tablet 05/26/18 Unknown Rx Nicotine [Habitrol] 21 mg TD QDAY #14 patch 05/26/18 Unknown Rx Thiamine [Vitamin B-1] 100 mg PO QDAY #30 tablet 05/26/18 Unknown Rx Tiotropium [place] [Spiriva 4 gm IH DAILY #1 mist.inhal 05/26/18 Unknown Rx Respimat] levoFLOXacin [Levaquin] 750 mg PO QDAY 5 Days #5 tablet 05/26/18 Unknown Rx methylPREDNISolone [Medrol Dose 1 dose PO DAILY #1 pack 05/26/18 Unknown Rx Ang] Active Medications: Generic Name Dose Route Start Last Admin Trade Name Freq PRN Reason Stop Dose Admin Acetaminophen 650 mg 12/01/18 17:26 Tylenol PO Q4H PRN Pain MILD(1-3)/Fever >100.5/MCKEON Arformoterol Tartrate 15 mcg 12/02/18 08:00 12/03/18 07:26 Brovana Nebu IH 15 mcg Q12HRT DAVIS Administration Aspirin 325 mg 12/02/18 10:00 12/03/18 10:02 Ecotrin PO 325 mg QDAY DAVIS Administration Budesonide 0.5 mg 12/02/18 08:00 12/03/18 07:26 Pulmicort IH 0.5 mg Q12HRT DAVIS Administration Famotidine 20 mg 12/01/18 22:00 12/03/18 10:02 Pepcid IV 20 mg BID DAVIS Administration Folic Acid 1 mg 12/02/18 10:00 12/03/18 10:02 Folvite PO 1 mg QDAY DAVIS Administration Hydromorphone HCl 0.25 mg 12/01/18 17:26 Dilaudid IV Q3H PRN Pain, Moderate (4-6) Sodium Chloride 1,000 mls @ 100 mls/hr 12/01/18 18:00 12/03/18 11:51 Nacl 0.9% 1000 Ml IV 100 mls/hr DIRECT DAVIS Administration Ibuprofen 600 mg 12/01/18 17:26 12/02/18 16:53 Ibuprofen PO 600 mg Q6H PRN Administration Pain, Mild (1-3) Magnesium Oxide 400 mg 12/03/18 10:00 12/03/18 10:02 Mag-Ox PO 400 mg BID DAVIS Administration Nicotine 21 mg 12/02/18 10:00 12/03/18 10:03 Habitrol TD 21 mg QDAY DAVIS Administration Ondansetron HCl 4 mg 12/01/18 17:26 Zofran IV Q8H PRN Nausea And Vomiting Potassium Phos/Sodium Phos 2 each 12/03/18 10:00 12/03/18 10:02 Phos-Nak PO 12/03/18 18:01 2 each Q4HR DAVIS Administration Sodium Chloride 10 ml 12/01/18 22:00 12/03/18 10:03 Sodium Chloride Flush Syringe 10 Ml IV 10 ml BID DAVIS Administration Sodium Chloride 10 ml 12/01/18 17:26 Sodium Chloride Flush Syringe 10 Ml IV PRN PRN LINE FLUSH Thiamine HCl 100 mg 12/02/18 10:00 12/03/18 10:02 Vitamin B-1 PO 100 mg QDAY DAVIS Administration Tiotropium [place] 1 puff 12/02/18 10:00 12/03/18 09:05 Spiriva IH Not Given Q24HR [facility]IS
[2018-12-03] MEDS ORDERED: DUONEB *Not for PRN Use IH ONE (13:19)
--- NOTE | 2018-12-03 17:01 | Consultation ---
History of Present Illness - Reason for Consult Consult date: 12/03/18 adrenal mass Requesting physician: NOAH DE PAZ - History of Present Illness Mr. Fu is a 63-year-old homeless man who presented with leg pains and weakness. He was found to be hyponatremic and admitted for further evaluation. He was complaining of leg pain as well as back pain and pain radiating up the right side of his abdomen. His bowel movements are variable with no major change. 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 He denies any other abdominal pain nausea or vomiting. He stays in an abandoned house. He is not aware of any masses. CT scan showed right adrenal mass, and consultation was obtained for further evaluation. Past History Past Medical History: COPD, other (Adrenal mass) Past Surgical History: Other (Hemorrhoids) Social history: smoking, alcohol abuse Medications and Allergies Allergies Allergy/AdvReac Type Severity Reaction Status Date / Time No Known Allergies Allergy Verified 05/24/18 23:58 Home Medications Medication Instructions Recorded Confirmed Last Taken Type ALBUTEROL Inhaler(NF) [VENTOLIN 2 puff IH Q4H PRN #1 unit 05/26/18 Unknown Rx Inhaler(NF)] Acetaminophen [Acetaminophen TAB] 650 mg PO Q4H PRN #15 tablet 05/26/18 Unknown Rx Aspirin EC 325 mg PO QDAY tablet 05/26/18 Unknown Rx Budesonide/Formoterol Fumarate 1 inhalation IH BID #1 unit 05/26/18 Unknown Rx [Symbicort 160-4.5 Mcg Inhaler] Folic Acid [Folvite] 1 mg PO QDAY #30 tablet 05/26/18 Unknown Rx Nicotine [Habitrol] 21 mg TD QDAY #14 patch 05/26/18 Unknown Rx Thiamine [Vitamin B-1] 100 mg PO QDAY #30 tablet 05/26/18 Unknown Rx Tiotropium [place] [Spiriva 4 gm IH DAILY #1 mist.inhal 05/26/18 Unknown Rx Respimat] levoFLOXacin [Levaquin] 750 mg PO QDAY 5 Days #5 tablet 05/26/18 Unknown Rx methylPREDNISolone [Medrol Dose 1 dose PO DAILY #1 pack 05/26/18 Unknown Rx Ang] Active Meds: Active Medications Acetaminophen (Tylenol) 650 mg PO Q4H PRN PRN Reason: Pain MILD(1-3)/Fever >100.5/MCKEON Arformoterol Tartrate (Brovana Nebu) 15 mcg IH Q12HRT [facility] Last Admin: 12/03/18 07:26 Dose: 15 mcg Documented by: Aspirin (Ecotrin) 325 mg PO QDAY [facility] Last Admin: 12/03/18 10:02 Dose: 325 mg Documented by: Budesonide (Pulmicort) 0.5 mg IH Q12HRT [facility] Last Admin: 12/03/18 07:26 Dose: 0.5 mg Documented by: Famotidine (Pepcid) 20 mg IV BID [facility] Last Admin: 12/03/18 10:02 Dose: 20 mg Documented by: Folic Acid (Folvite) 1 mg PO QDAY [facility] Last Admin: 12/03/18 10:02 Dose: 1 mg Documented by: Hydromorphone HCl (Dilaudid) 0.25 mg IV Q3H PRN PRN Reason: Pain, Moderate (4-6) Sodium Chloride (Nacl 0.9% 1000 Ml) 1,000 mls @ 100 mls/hr IV DIRECT [facility] Last Admin: 12/03/18 11:51 Dose: 100 mls/hr Documented by: Ibuprofen (Ibuprofen) 600 mg PO Q6H PRN PRN Reason: Pain, Mild (1-3) Last Admin: 12/02/18 16:53 Dose: 600 mg Documented by: Magnesium Oxide (Mag-Ox) 400 mg PO BID [facility] Last Admin: 12/03/18 10:02 Dose: 400 mg Documented by: Nicotine (Habitrol) 21 mg TD QDAY [facility] Last Admin: 12/03/18 10:03 Dose: 21 mg Documented by: Ondansetron HCl (Zofran) 4 mg IV Q8H PRN PRN Reason: Nausea And Vomiting Potassium Phos/Sodium Phos (Phos-Nak) 2 each PO Q4HR [facility] Stop: 12/03/18 18:01 Last Admin: 12/03/18 14:05 Dose: 2 each Documented by: Sodium Chloride (Sodium Chloride Flush Syringe 10 Ml) 10 ml IV BID [facility] Last Admin: 12/03/18 10:03 Dose: 10 ml Documented by: Sodium Chloride (Sodium Chloride Flush Syringe 10 Ml) 10 ml IV PRN PRN PRN Reason: LINE FLUSH Thiamine HCl (Vitamin B-1) 100 mg PO QDAY [facility] Last Admin: 12/03/18 10:02 Dose: 100 mg Documented by: Tiotropium [place] (Spiriva) 1 puff IH Q24HR [facility] Last Admin: 12/03/18 09:05 Dose: Not Given Documented by: Review of Systems All systems: negative (as noted in HPI) Exam - Constitutional Vitals: Temp Pulse Resp BP Pulse Ox 98.9 F 92 H 18 120/76 98 12/03/18 12:04 12/03/18 12:04 12/03/18 12:04 12/03/18 12:04 12/03/18 12:04 General appearance: Present: no acute distress, disheveled - EENT Eyes: Present: PERRL, EOM intact ENT: hearing intact - Respiratory Respiratory effort: normal Respiratory: bilateral: CTA - Cardiovascular Rhythm: regular Heart Sounds: Present: S1 & S2 - Extremities Extremities: No edema - Abdominal General gastrointestinal: Present: soft, non-tender - Additional findings Additional findings: Low back tenderness Results - Labs CBC & Chem 7: 12/03/18 05:57 12/03/18 05:57 Labs: Abnormal lab results 12/02/18 12/03/18 12/03/18 Range/Units 17:47 05:57 05:57 RBC 3.59 L (3.65-5.03) M/mm3 Hgb 10.6 L (11.8-15.2) gm/dl Hct 31.6 L (35.5-45.6) % RDW 18.0 H (13.2-15.2) % Sodium 130 L 131 L (137-145) mmol/L Potassium 3.4 L (3.6-5.0) mmol/L Chloride 96.9 L (98-107) mmol/L Carbon Dioxide 21 L (22-30) mmol/L BUN 5 L 4 L (9-20) mg/dL Creatinine 0.6 L 0.5 L (0.8-1.5) mg/dL Glucose 127 H (75-100) mg/dL Uric Acid 2.9 L (3.5-7.6) mg/dL Calcium 7.6 L 7.4 L (8.4-10.2) mg/dL Phosphorus 1.90 L (2.5-4.5) mg/dL Magnesium 1.60 L (1.7-2.3) mg/dL - Imaging and Cardiology CT scan - abdomen: report reviewed Assessment and Plan 1. R adrenal mass - this was noted on 04/2018 CTA as well. If stable, this would be consistent with an adrenal adenoma, and no further evaluation is required. Will review with Radiology in AM.
[2018-12-04] MEDS: NACL 0.9% 1000 ML 1,000 ML IV SCH (03:50)
[2018-12-04 05:23] LABS: BUN/Creatinine Ratio 12; Blood Urea Nitrogen 6 mg/dL (9-20); Calcium 7.7 mg/dL (8.4-10.2); Hemolysis Index 28
[2018-12-04] MEDS: SPIRIVA IH SCH ×2 (07:36→12:14)
[2018-12-04] MEDS: PULMICORT IH SCH (07:40)
[2018-12-04] MEDS: BROVANA NEBU IH SCH (07:40)
[2018-12-04] MEDS: PEPCID IV SCH (10:47)
[2018-12-04] MEDS: FOLVITE PO SCH (10:47)
[2018-12-04] MEDS: VITAMIN B-1 PO SCH (10:48)
[2018-12-04] MEDS: ECOTRIN PO SCH (10:48)
[2018-12-04] MEDS: SODIUM CHLORIDE FLUSH SYRINGE 10 ML IV SCH (10:48)
[2018-12-04] MEDS: MAG-OX PO SCH (10:48)
[2018-12-04] MEDS: HABITROL TD SCH (10:48)
--- NOTE | 2018-12-04 11:29 | Progress Note ---
Assessment and Plan Assessment and plan: Patient is a 63 yo man who is Homeless with a history of COPD, tobacco dependency, alcohol abuse, AOCD, hypotension, right Adrenal lesion, hepatic steatosis and hiatal hernia who presented to [facility] ED with abdominal pains. He was sleeping outside of a gas station. He c/o abdominal and back pains. He was p icked up by EMS. Patient arrived wet and smelling of urine * CT abd/pelvis with IV contrast IMPRESSION: No acute inflammatory process is identified. Hiatal hernia. Hepatic steatosis. Right adrenal mass as described. This probably represents an adrenal adenoma. This could be further evaluated with noncontrast CT abdomen or MRI abdomen adrenal protocol if needed. Chronic left rib and L2 fractures. * pCXR IMPRESSION: No acute cardiopulmonary process. 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 Follow-up on current diagnosis of Hyponatremia, COPD and Homelessness. No overnight events reported to me. Patient denies any chest pain, shortness breath, nausea/vomiting or severe headaches. Imaging, nursing note, chart, labs and old chart reviewed. Discussed with patient. Hospitalist Physical - Physical exam Narrative exam: Gen: thin frail, unkempt, NAD, Awake, Alert, Orientated HEENT: NCAT, EOMI, PERRL, OP Clear Neck: supple, no adenopathy, no thyromegaly, no JVD CVS/Heart: RRR, normal S1S2, pulses present bilaterally Chest/Lungs: CTA B, Symmetrical chest expansion, good air entry bilaterally GI/Abdomen: soft, NTND, good bowel sounds, no guarding or rebound /Bladder: no suprapubic tenderness, no CVA or paraspinal tenderness Extermity/Skin: no c/c/e, no obvious rash MSK: FROM x 4 Neuro: CN 2-12 grossly intact, no new focal deficits Psych: calm - Constitutional Vitals: Temp Pulse Resp BP Pulse Ox 98.3 F 73 16 136/74 97 12/04/18 04:58 12/04/18 07:48 12/04/18 07:48 12/04/18 04:58 12/04/18 04:58 General appearance: Present: no acute distress, disheveled Results - Labs CBC & Chem 7: 12/03/18 05:57 12/04/18 04:42 Labs: Laboratory Last Values WBC 4.5 K/mm3 (4.5-11.0) 12/03/18 05:57 RBC 3.59 M/mm3 (3.65-5.03) L 12/03/18 05:57 Hgb 10.6 gm/dl (11.8-15.2) L 12/03/18 05:57 Hct 31.6 % (35.5-45.6) L 12/03/18 05:57 MCV 88 fl (84-94) 12/03/18 05:57 MCH 30 pg (28-32) 12/03/18 05:57 MCHC 34 % (32-34) 12/03/18 05:57 RDW 18.0 % (13.2-15.2) H 12/03/18 05:57 Plt Count 151 K/mm3 (140-440) 12/03/18 05:57 Lymph % (Auto) 10.4 % (13.4-35.0) L 12/02/18 04:45 Nelson % (Auto) 11.5 % (0.0-7.3) H 12/02/18 04:45 Eos % (Auto) 0.7 % (0.0-4.3) 12/02/18 04:45 Baso % (Auto) 0.7 % (0.0-1.8) 12/02/18 04:45 Lymph # 0.4 K/mm3 (1.2-5.4) L 12/02/18 04:45 Nelson # 0.5 K/mm3 (0.0-0.8) 12/02/18 04:45 Eos # 0.0 K/mm3 (0.0-0.4) 12/02/18 04:45 Baso # 0.0 K/mm3 (0.0-0.1) 12/02/18 04:45 Seg Neutrophils % 76.7 % (40.0-70.0) H 12/02/18 04:45 Seg Neutrophils # 3.2 K/mm3 (1.8-7.7) 12/02/18 04:45 PT 13.6 Sec. (12.2-14.9) 12/01/18 09:01 INR 0.98 (0.87-1.13) 12/01/18 09:01 APTT 28.9 Sec. (24.2-36.6) 12/01/18 09:01 VBG pH 7.404 (7.320-7.420) 12/01/18 09:01 Sodium 132 mmol/L (137-145) L 12/04/18 04:42 Potassium 3.8 mmol/L (3.6-5.0) 12/04/18 04:42 Chloride 99.1 mmol/L (98-107) 12/04/18 04:42 Carbon Dioxide 24 mmol/L (22-30) 12/04/18 04:42 13 mmol/L 12/04/18 04:42 BUN 6 mg/dL (9-20) L 12/04/18 04:42 0.5 mg/dL (0.8-1.5) L 12/04/18 04:42 Estimated GFR > 60 ml/min 12/04/18 04:42 12 % 12/04/18 04:42 Glucose 96 mg/dL (75-100) 12/04/18 04:42 POC Glucose 88 (70-105) 12/01/18 07:44 4.6 % (4-6) 12/01/18 17:36 260 Mosm/kg 12/02/18 06:30 Lactic Acid 0.80 mmol/L (0.7-2.0) 12/01/18 13:04 2.9 mg/dL (3.5-7.6) L 12/03/18 05:57 Calcium 7.7 mg/dL (8.4-10.2) L 12/04/18 04:42 Phosphorus 3.20 mg/dL (2.5-4.5) D 12/04/18 04:42 Magnesium 1.90 mg/dL (1.7-2.3) 12/04/18 04:42 0.30 mg/dL (0.1-1.2) 12/02/18 04:45 AST 28 units/L (5-40) 12/02/18 04:45 ALT 31 units/L (7-56) 12/02/18 04:45 81 units/L (35-129) 12/02/18 04:45 46.0 umol/L (25-60) 12/01/18 09:01 125 units/L (55-170) 12/01/18 07:51 CK-MB (CK-2) 3.9 ng/mL (0.0-4.0) 12/01/18 07:51 CK-MB (CK-2) Rel Index 3.1 (0-4) 12/01/18 07:51 < 0.010 ng/mL (0.00-0.029) 12/01/18 07:51 NT-Pro-B Natriuret Pep 247.0 pg/mL (0-900) 12/01/18 07:51 5.4 g/dL (6.3-8.2) L D 12/02/18 04:45 2.6 g/dL (3.9-5) L 12/02/18 04:45 0.9 % 12/02/18 04:45 25 units/L (13-60) 12/01/18 07:51 Yellow (Yellow) 12/01/18 12:22 Clear (Clear) 12/01/18 12:22 6.0 (5.0-7.0) 12/01/18 12:22 Ur Specific [place] 1.033 (1.003-1.030) H 12/01/18 12:22 <15 mg/dl mg/dL (Negative) 12/01/18 12:22 Neg mg/dL (Negative) 12/01/18 12:22 20 mg/dL (Negative) 12/01/18 12:22 Neg (Negative) 12/01/18 12:22 Neg (Negative) 12/01/18 12:22 Neg (Negative) 12/01/18 12:22 < 2.0 mg/dL (<2.0) 12/01/18 12:22 Ur Leukocyte Esterase Neg (Negative) 12/01/18 12:22 < 1.0 /HPF (0.0-6.0) 12/01/18 12:22 < 1.0 /HPF (0.0-6.0) 12/01/18 12:22 Few /HPF 12/01/18 12:22 Presumptive negative 12/01/18 12:22 Presumptive negative 12/01/18 12:22 Ur Barbiturates Screen Presumptive negative 12/01/18 12:22 Ur Phencyclidine Scrn Presumptive negative 12/01/18 12:22 Ur Amphetamines Screen Presumptive negative 12/01/18 12:22 U Benzodiazepines Scrn Presumptive negative 12/01/18 12:22 Presumptive negative 12/01/18 12:22 U Marijuana (THC) Screen Presumptive negative 12/01/18 12:22 Disclamer 12/01/18 12:22 Plasma/Serum Alcohol < 0.01 % (0-0.07) 12/01/18 09:01 Active Medications - Current Medications Current Medications: Generic Name Dose Route Start Last Admin Trade Name Freq PRN Reason Stop Dose Admin Acetaminophen 650 mg 12/01/18 17:26 Tylenol PO Q4H PRN Pain MILD(1-3)/Fever >100.5/MCKEON Arformoterol Tartrate 15 mcg 12/02/18 08:00 12/04/18 07:40 Brovana Nebu IH 15 mcg Q12HRT DAVIS Administration Aspirin 325 mg 12/02/18 10:00 12/04/18 10:48 Ecotrin PO 325 mg QDAY DAVIS Administration Budesonide 0.5 mg 12/02/18 08:00 12/04/18 07:40 Pulmicort IH 0.5 mg Q12HRT DAVIS Administration Famotidine 20 mg 12/01/18 22:00 12/04/18 10:47 Pepcid IV 20 mg BID DAVIS Administration Folic Acid 1 mg 12/02/18 10:00 12/04/18 10:47 Folvite PO 1 mg QDAY DAVIS Administration Hydromorphone HCl 0.25 mg 12/01/18 17:26 Dilaudid IV Q3H PRN Pain, Moderate (4-6) Sodium Chloride 1,000 mls @ 100 mls/hr 12/01/18 18:00 12/04/18 03:50 Nacl 0.9% 1000 Ml IV 100 mls/hr DIRECT DAVIS Administration Ibuprofen 600 mg 12/01/18 17:26 12/02/18 16:53 Ibuprofen PO 600 mg Q6H PRN Administration Pain, Mild (1-3) Magnesium Oxide 400 mg 12/03/18 10:00 12/04/18 10:48 Mag-Ox PO 400 mg BID DAVIS Administration Nicotine 21 mg 12/02/18 10:00 12/04/18 10:48 Habitrol TD 21 mg QDAY DAVIS Administration Ondansetron HCl 4 mg 12/01/18 17:26 Zofran IV Q8H PRN Nausea And Vomiting Sodium Chloride 10 ml 12/01/18 22:00 12/04/18 10:48 Sodium Chloride Flush Syringe 10 Ml IV 10 ml BID DAVIS Administration Sodium Chloride 10 ml 12/01/18 17:26 Sodium Chloride Flush Syringe 10 Ml IV PRN PRN LINE FLUSH Thiamine HCl 100 mg 12/02/18 10:00 12/04/18 10:48 Vitamin B-1 PO 100 mg QDAY DAVIS Administration Tiotropium [place] 1 puff 12/02/18 10:00 12/04/18 07:36 Spiriva IH 1 puff Q24HR DAVIS Administration Nutrition/Malnutrition Assess - Dietary Evaluation Nutrition/Malnutrition Findings: Nutrition Notes Start: 12/02/18 17:05 Freq: Status: Active Protocol: Document 12/02/18 17:05 RM (Rec: 12/02/18 17:12 RM [id number]) Nutrition Notes Need for Assessment generated from: MD Order Initial or Follow up Assessment Current Diagnosis COPD,Hypertension Other Pertinent Diagnosis Alcoholic fatty liver, homelessness Current Diet Regular Labs/Tests Reviewed Pertinent Medications Reviewed Height 5 ft 5 in Weight 63.503 kg Usual Body Weight 63.64 kg [place] Body Weight (kg) 61.81 BMI 23.3 Subjective/Other Information Consulted for malnutrition. Pt stated that STAMP MOUNTER his appetite was "so so" and that he ate 1 meal daily for months . Stated his appetite is "so so" now and that he eats 50% of his meals. Declined regular ONS. Admitted to nausea and diarrhea. Stated UBW was 140 lbs at least a year ago. No temporal or orbital wasting . Percent of energy/protein needs met: 66%/85% Burn Absent Trauma Absent #1 Nutrition Diagnosis Inadequate oral intake Etiology decreased appetite As Evidenced by Signs and Symptoms pt statement that he eats 50% of his meals Is patient on ventilator? No Is Patient Ambulatory and/or Out of Bed Yes REE-([place]-ambulatory/OOB) [ 1770.483 [id number]] Calculation Used for Recommendations [facility] Additional Notes Protein Needs:51-64g (0.8-1g/ kg) Fluid Needs: 1 ml/kcal Nutrition Intervention Change Diet Order: Continue current Add Supplement/Snack (indicate name/kcal Ensure Clear 1 daily /protein ) Provides kCal: 240 Provides Protein (gm) 8 Goal #1 Meet at least 75% of calorie and protein needs via PO and ONS intakes Anticipated Discharge Needs: Regular diet Follow-Up By: 12/06/18 Additional Comments Follow for PO and ONS intakes
--- NOTE | 2018-12-04 11:31 | Discharge Summary ---
Providers - Providers Date of Admission: 12/01/18 11:01 Date of discharge: 12/04/18 Attending physician: NOAH DE PAZ 12/01/18 07:53 Consult to Case Management [CONS] Stat Services Needed at Discharge: Fitter Type Bar And Segment Notified:: dionisio hidalgo 12/02/18 09:16 Consult to Dietitian/Nutrition [CONS] Routine Physician Instructions: Reason For Exam: Reason for Consult: Malnutrition 12/02/18 09:20 Consult to Physician [CONS] Routine Comment: Consulting Provider: IAN HIGUERA Physician Instructions: Reason For Exam: hyponatremia 12/02/18 09:21 Consult to Physician [CONS] Routine Comment: Consulting Provider: JAKE ESTRELLA Physician Instructions: Reason For Exam: hyponatremia, adrenal mass, fatty liver [facility] Condition: Stable Hospital course: Patient is a 63 yo man who is Homeless with a history of COPD, tobacco dependency, alcohol abuse, AOCD, hypotension, right Adrenal lesion, hepatic steatosis and hiatal hernia who presented to [facility] ED with abdominal pains. He was sleeping outside of a gas station. He c/o abdominal and back pains. He was picked up by EMS. Patient arrived wet and smelling of urine * CT abd/pelvis with IV contrast IMPRESSION: No acute inflammatory process is identified. Hiatal hernia. Hepatic steatosis. Right adrenal mass as described. This probably represents an adrenal adenoma. This could be further evaluated with noncontrast CT abdomen or MRI abdomen adrenal protocol if needed. Chronic left rib and L2 fractures. * pCXR IMPRESSION: No acute cardiopulmonary process. 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 counselor on stopping Homeless: Case management consulted DVT ppx on sq lovenox Disposition: TO HOME OR SELFCARE Time spent for discharge: 32 minutes Core Measure Documentation - Palliative Care Palliative Care/ Comfort Measures: Not Applicable - Core Measures Any of the following diagnoses?: none - VTE Discharge Requirements Deep Vein Thrombosis/Pulmonary Embolism Present on Admission: No Has pt received <5 days of overlap therapy or INR<2.0: No Anticoagulant overlap therapy prescribed at discharge: No Contraindication No Overlap Therapy order at DC: Not Indicated Exam - Physical Exam Narrative exam: Gen: thin frail, unkempt, NAD, Awake, Alert, Orientated HEENT: NCAT, EOMI, PERRL, OP Clear Neck: supple, no adenopathy, no thyromegaly, no JVD CVS/Heart: RRR, normal S1S2, pulses present bilaterally Chest/Lungs: CTA B, Symmetrical chest expansion, good air entry bilaterally GI/Abdomen: soft, NTND, good bowel sounds, no guarding or rebound /Bladder: no suprapubic tenderness, no CVA or paraspinal tenderness Extermity/Skin: no c/c/e, no obvious rash MSK: FROM x 4 Neuro: CN 2-12 grossly intact, no new focal deficits Psych: calm - Constitutional Vitals: Temp Pulse Resp BP Pulse Ox 98.3 F 73 16 136/74 97 12/04/18 04:58 12/04/18 07:48 12/04/18 07:48 12/04/18 04:58 12/04/18 04:58 Plan Activity: other (no strenous activity ) Diet: regular Follow up with: NATALIYA RIVERA MD [Primary Care Provider] - 3-5 Days JAKE ESTRELLA MD [Staff Physician] - 7 Days IAN HIGUERA MD [Staff Physician] - 7 Days Prescriptions: Magnesium Oxide [Mag-Ox] 400 mg PO BID #30 tablet Sodium Chloride 2 tab PO QDAY #60 tablet
[2018-12-04 12:33] VITALS: BP 125/75
[2018-12-04] MEDS: IBUPROFEN PO PRN (13:03)
--- NOTE | 2018-12-04 14:33 | Progress Note ---
Assessment and Plan 1. R adrenal mass - this was noted on 04/2018 CTA as well. Stable and most consistent with an adrenal adenoma. Reviewed with Radiology. They recommend MRI with contrast to be certain, but agree that most likely benign adenoma. - discussed with Dr. West. Will sign off. Subjective Date of service: 12/04/18 Interval history: Pt denies complaints. Objective - Constitutional Vitals: Vital Signs - 12hr 12/04/18 12/04/18 12/04/18 04:58 07:35 07:38 Temperature 98.3 F Pulse Rate 73 Pulse Rate [ 71 71 Anterior Bilateral Throughout] Respiratory 24 Rate Respiratory 16 16 Rate [Anterior Bilateral Throughout] Blood Pressure 136/74 O2 Sat by Pulse 97 Oximetry 12/04/18 12/04/18 12/04/18 07:40 07:48 11:43 Temperature 98.7 F Pulse Rate 74 Pulse Rate [ 71 73 Anterior Bilateral Throughout] Respiratory 20 Rate Respiratory 16 16 Rate [Anterior Bilateral Throughout] Blood Pressure 125/75 O2 Sat by Pulse 97 Oximetry General appearance: Present: no acute distress, disheveled - EENT Eyes: PERRL, EOM intact ENT: hearing intact - Respiratory Respiratory effort: normal - Gastrointestinal General gastrointestinal: Present: soft, non-tender - Labs CBC & Chem 7: 12/03/18 05:57 12/04/18 04:42 Labs: Abnormal lab results 12/04/18 Range/Units 04:42 Sodium 132 L (137-145) mmol/L BUN 6 L (9-20) mg/dL Creatinine 0.5 L (0.8-1.5) mg/dL Calcium 7.7 L (8.4-10.2) mg/dL Medications & Allergies - Medications Allergies/Adverse Reactions: Allergies No Known Allergies Allergy (Verified 05/24/18 23:58) Home Medications: Home Medications Medication Instructions Recorded Confirmed Last Taken Type ALBUTEROL Inhaler(NF) [VENTOLIN 2 puff IH Q4H PRN #1 unit 05/26/18 Unknown Rx Inhaler(NF)] Aspirin EC 325 mg PO QDAY tablet 05/26/18 Unknown Rx Budesonide/Formoterol Fumarate 1 inhalation IH BID #1 unit 05/26/18 Unknown Rx [Symbicort 160-4.5 Mcg Inhaler] Folic Acid [Folvite] 1 mg PO QDAY #30 tablet 05/26/18 Unknown Rx Nicotine [Habitrol] 21 mg TD QDAY #14 patch 05/26/18 Unknown Rx Thiamine [Vitamin B-1] 100 mg PO QDAY #30 tablet 05/26/18 Unknown Rx Tiotropium [place] [Spiriva 4 gm IH DAILY #1 mist.inhal 05/26/18 Unknown Rx Respimat] Acetaminophen [Acetaminophen TAB] 325 mg PO Q4H PRN #15 tablet 12/04/18 Unknown Rx Magnesium Oxide [Mag-Ox] 400 mg PO BID #30 tablet 12/04/18 Unknown Rx Sodium Chloride 2 tab PO QDAY #60 tablet 12/04/18 Unknown Rx Active Medications: Generic Name Dose Route Start Last Admin Trade Name Freq PRN Reason Stop Dose Admin Acetaminophen 650 mg 12/01/18 17:26 Tylenol PO Q4H PRN Pain MILD(1-3)/Fever >100.5/MCKEON Arformoterol Tartrate 15 mcg 12/02/18 08:00 12/04/18 07:40 Brovana Nebu IH 15 mcg Q12HRT DAVIS Administration Aspirin 325 mg 12/02/18 10:00 12/04/18 10:48 Ecotrin PO 325 mg QDAY DAVIS Administration Budesonide 0.5 mg 12/02/18 08:00 12/04/18 07:40 Pulmicort IH 0.5 mg Q12HRT DAVIS Administration Famotidine 20 mg 12/01/18 22:00 12/04/18 10:47 Pepcid IV 20 mg BID DAVIS Administration Folic Acid 1 mg 12/02/18 10:00 12/04/18 10:47 Folvite PO 1 mg QDAY DAVIS Administration Hydromorphone HCl 0.25 mg 12/01/18 17:26 Dilaudid IV Q3H PRN Pain, Moderate (4-6) Sodium Chloride 1,000 mls @ 100 mls/hr 12/01/18 18:00 12/04/18 03:50 Nacl 0.9% 1000 Ml IV 100 mls/hr DIRECT DAVIS Administration Ibuprofen 600 mg 12/01/18 17:26 12/04/18 13:03 Ibuprofen PO 600 mg Q6H PRN Administration Pain, Mild (1-3) Magnesium Oxide 400 mg 12/03/18 10:00 12/04/18 10:48 Mag-Ox PO 400 mg BID DAVIS Administration Nicotine 21 mg 12/02/18 10:00 12/04/18 10:48 Habitrol TD 21 mg QDAY DAVIS Administration Ondansetron HCl 4 mg 12/01/18 17:26 Zofran IV Q8H PRN Nausea And Vomiting Sodium Chloride 10 ml 12/01/18 22:00 12/04/18 10:48 Sodium Chloride Flush Syringe 10 Ml IV 10 ml BID DAVIS Administration Sodium Chloride 10 ml 12/01/18 17:26 Sodium Chloride Flush Syringe 10 Ml IV PRN PRN LINE FLUSH Thiamine HCl 100 mg 12/02/18 10:00 12/04/18 10:48 Vitamin B-1 PO 100 mg QDAY DAVIS Administration Tiotropium [place] 1 puff 12/02/18 10:00 12/04/18 12:14 Spiriva IH Not Given Q24HR DAVIS
[2018-12-04] MEDS ORDERED: SODIUM CHLORIDE PO SCH (22:00)
== END 2018-12-04 16:50 | disposition home or self-care (01) | DRG 640 ==
LOC: ED 06:58 → 3A 11:01
PROVIDERS: ADMIT Internal Medicine; ATTEND Internal Medicine
PROC: 3E0234Z Introduction of Serum, Toxoid and Vaccine into Muscle, Percutaneous Approach (ICD-10-PCS; principal; 2018-12-02)
DX: E87.1 Hypo-osmolality and hyponatremia (principal); E43 Unspecified severe protein-calorie malnutrition; G93.40 Encephalopathy, unspecified; M84.48XA Pathological fracture, other site, initial encounter for fracture; E87.2 Acidosis; J44.9 Chronic obstructive pulmonary disease, unspecified; F17.200 Nicotine dependence, unspecified, uncomplicated; F10.10 Alcohol abuse, uncomplicated; D63.8 Anemia in other chronic diseases classified elsewhere; K44.9 Diaphragmatic hernia without obstruction or gangrene; D35.01 Benign neoplasm of right adrenal gland; E86.0 Dehydration; E87.6 Hypokalemia; K76.0 Fatty (change of) liver, not elsewhere classified; R74.0 Nonspecific elevation of levels of transaminase and lactic acid dehydrogenase [LDH]; I10 Essential (primary) hypertension; Z68.21 Body mass index [BMI] 21.0-21.9, adult; Z71.6 Tobacco abuse counseling; Z87.01 Personal history of pneumonia (recurrent); Z72.89 Other problems related to lifestyle; Z82.49 Family history of ischemic heart disease and other diseases of the circulatory system; Z59.0 Homelessness; Z23 Encounter for immunization
CPT/HCPCS: 36415; 71045; 74177; 80048; 80053; 80307; 80320; 81001; 82140; 82533; 82550; 82553; 82805; 82962; 83036; 83690; 83735; 83880; 83930; 84100; 84484; 84550; 85025; 85027; 85610; 85730; 87040; 87086; 87116; 90732; 93005; 93010; 94640; 96365; G0378; G0480; J2185; J3475; J7030; J7040; J7050; Q9967